=== PATIENT | female | born 1950 | race Caucasian/White ===

== ENCOUNTER 2017-11-14 18:40 | Emergency (ER) | payer MEDICARE, OTHER ==
[2017-11-14] MEDS ORDERED: Sodium Chloride 0.9% 1,000 ML IV ONE (19:00)
[2017-11-14] MEDS ORDERED: Ondansetron 4 MG/2 ML SDV IV ONE ×2 (19:01→19:30)
--- NOTE | 2017-11-14 19:10 | EDM.PDOC ---
ED HPI GENERAL MEDICAL PROBLEM - General Chief Complaint: General Stated Complaint: DIZZY,VOMITING,MENIERE'S [id number] Time Seen by Provider: 11/14/17 19:00 Source of Information: Reports: Patient History Limitations: Reports: No Limitations - History of Present Illness INITIAL COMMENTS - FREE TEXT/NARRATIVE: ED per w/c with family. C/o severe nausea, vomiting and dizziness. Has had intermittent dizziness past week, tonight sudden onset with vomiting, . Hx vertigo, last episode in August with similar sx. Tried meclizine at 430 but emesis 10 minutes alter. Dizziness worse with any movement. Hx migraines, one time monthly. No recent URI. Ears "cleaned yesterday". Primary clinic Presentation [place]. In area visiting. Non smoker. Last head CT years ago. Generalized weakness after vomiting episode, No difficulty with speech. - Related Data Allergies Allergy/AdvReac Type Severity Reaction Status Date / Time cephalexin [From Keflex] Allergy Rash Verified 11/14/17 18:58 Home Meds: Home Meds Omeprazole Magnesium [Prilosec Otc] 20 mg PO DAILY 11/14/17 [History] Rizatriptan Benzoate [Rizatriptan] 10 mg PO ASDIRECTED PRN 11/14/17 [History] Past Medical History HEENT History: Reports: Other (See Below) Other HEENT History: Meniere's Gastrointestinal History: Reports: GERD Neurological History: Reports: Migraines Social & Family History - Tobacco Use Smoking Status *Q: Never Smoker Second Hand Smoke Exposure: No ED ROS GENERAL - Review of Systems Review Of Systems: ROS reveals no pertinent complaints other than HPI. ED EXAM, GENERAL - Physical Exam Exam: See Below Exam Limited By: No Limitations General Appearance: Alert, Mild Distress Eye Exam: Bilateral Eye: EOMI, PERRL Ears: Normal External Exam, Normal TMs Nose: Normal Inspection Throat/Mouth: Normal Oropharynx Head: Atraumatic, Normocephalic Neck: Normal Inspection Respiratory/Chest: Decreased Breath Sounds, Wheezing (left lower), Other (harsh loose cough) Cardiovascular: Regular Rate, Rhythm GI/Abdominal: Normal Bowel Sounds, Soft Back Exam: Full Range of Motion Extremities: Normal Inspection Neurological: Alert, Oriented, Normal Cognition Psychiatric: Normal Affect Skin Exam: Warm, Dry, Intact, Normal Color Course - Vital Signs Last Recorded V/S: Last Vital Signs Temp 97.7 F 11/14/17 21:45 Pulse 80 11/14/17 21:45 Resp 18 11/14/17 21:45 BP 99/60 11/14/17 21:45 Pulse Ox 97 11/14/17 21:45 - Orders/Labs/Meds Orders: Active Orders 24 hr Category Date Time Status RT Aerosol Therapy [RC] ASDIRECTED Care 11/14/17 19:11 Active Labs: Laboratory Tests 11/14/17 11/14/17 11/14/17 Range/Units 19:05 19:05 19:05 WBC 7.3 (5.0-10.0) 10^3/uL RBC 4.28 (4.2-5.4) 10^6/uL Hgb 12.9 (12.0-16.0) g/dL Hct 38.7 (37.0-47.0) % MCV 90.4 (80-100) fL MCH 30.1 (27.0-34.0) pg MCHC 33.3 (33.0-35.0) g/dL Plt Count 225 (150-450) 10^3/uL Neut % (Auto) 64.0 (42.2-75.2) % Lymph % (Auto) 27.7 (20.5-50.1) % Dare % (Auto) 6.7 (2-8) % Eos % (Auto) 1.2 (1.0-3.0) % Baso % (Auto) 0.4 (0.0-1.0) % Sodium 139 (135-145) mmol/L Potassium 3.4 L (3.6-5.0) mmol/L Chloride 105 (101-111) mmol/L Carbon Dioxide 24.0 (21.0-31.0) mmol/L Anion Gap 13.4 BUN 19 H (7-18) mg/dL Creatinine 0.7 (0.6-1.3) mg/dL Est Cr Clr Drug Dosing 62.53 mL/min Estimated GFR (MDRD) > 60 BUN/Creatinine Ratio 27.14 Glucose 116 H (74-105) mg/dL Calcium 8.7 (8.4-10.2) mg/dl Total Bilirubin 0.7 (0.2-1.0) mg/dL AST 30 (10-42) IU/L ALT 26 (10-60) IU/L Alkaline Phosphatase 62 (42-121) IU/L Troponin I < 0.02 (0.00-0.02) ng/ml Total Protein 7.2 (6.7-8.2) g/dl Albumin 4.3 (3.2-5.5) g/dl Globulin 2.9 Albumin/Globulin Ratio 1.48 Meds: Medications Discontinued Medications Generic Name Dose Route Start Last Admin Trade Name Simin PRN Reason Stop Dose Admin Albuterol/Ipratropium 3 ml 11/14/17 19:11 11/14/17 19:21 Duoneb 3.0-0.5 Mg/3 Ml NEB 11/14/17 19:12 Not Given ONETIME ONE Sodium Chloride 1,000 mls @ 250 mls/hr 11/14/17 19:00 11/14/17 19:10 Normal Saline IV 11/14/17 22:59 250 mls/hr .BOLUS ONE Administration Meclizine HCl 25 mg 11/14/17 20:28 11/14/17 20:42 Antivert PO 11/14/17 20:29 25 mg ONETIME ONE Administration Ondansetron HCl 4 mg 11/14/17 19:01 11/14/17 19:10 Zofran IV 11/14/17 19:02 4 mg ONETIME ONE Administration Ondansetron HCl 4 mg 11/14/17 19:30 11/14/17 20:00 Zofran IV 11/14/17 19:31 4 mg ONETIME ONE Administration Ondansetron HCl Confirm 11/14/17 21:33 11/14/17 21:46 Zofran Odt Administered 11/14/17 21:34 Not Given Dose 8 mg .ROUTE .[facility] ONE - Radiology Interpretation Free Text/Narrative:: kirstin: MIRELA KELLER Age: 67Years F Date: 11/14/2017 SSN: -- : 1950 Study: CT HEAD WO Requesting Physician: ANNABELLE RAMIREZ Images: 144 Addl Studies: Provided Clinical History: Contrast: Without Contrast Medium: Contrast Amount: Contrast Method: Page 1 of 2 EXAM: CT Head Without Intravenous Contrast EXAM DATE/TIME: 11/14/2017 7:42 PM CLINICAL HISTORY: 67 years old, female; Signs and symptoms; Dizziness TECHNIQUE: Axial computed tomography images of the head/brain without intravenous contrast. All CT scans at this facility use at least one of these dose optimization techniques: automated exposure control; mA and/or kV adjustment per patient size (includes targeted exams where dose is matched to clinical indication); or iterative reconstruction. Coronal and sagittal reformatted images were created and reviewed. COMPARISON: No relevant prior studies available. FINDINGS: Brain: No hemorrhage, mass effect or midline shift. Ventricles: Normal. No ventriculomegaly. Bones/joints: There are no significant skull abnormalities. Sinuses: The visualized portions of the sinuses and orbits are unremarkable. Mastoid air cells: Normal as visualized. No mastoid effusion. Soft tissues: Normal. IMPRESSION: No hemorrhage, mass effect or midline shift. MIRELA KELLER | Final Radiology Report CONFIDENTIALITY STATEMENT This report is intended only for use by the referring physician, and only in accordance with law. If you received this in error, call [phone]. Page 2 of 2 Thank you for allowing us to participate in the care of your patient. Dictated and Authenticated by: Chad De La Rosa DO 11/14/2017 8:24 PM Central Time ([place] & [place]) - Re-Assessments/Exams Free Text/Narrative Re-Assessment/Exam: 11/14/17 20:38 Eyes open, reports nausea and dizziness improving. Departure - Departure Time of Disposition: 21:40 Disposition: Home, Self-Care 01 Condition: Good Clinical Impression: Dizziness Nausea & vomiting Qualifiers: Vomiting type: bilious vomiting Qualified Code(s): R11.14 - Bilious vomiting - Discharge Information Instructions: Vertigo Referrals: PCP,Not In Area [Primary Care Provider] - Forms: ED Department Discharge Additional Instructions: zofran ODT 4mg every 4 hours as needed for vomiting, nausea meclizine 25mg every 8 hoursa s needed for dizziness rest fluids, small amounts more often follow up if symptoms worsen - My Orders Last 24 Hours: My Active Orders 11/14/17 19:11 RT Aerosol Therapy [RC] ASDIRECTED - Assessment/Plan Last 24 Hours: My Active Orders 11/14/17 19:11 RT Aerosol Therapy [RC] ASDIRECTED
[2017-11-14] MEDS ORDERED: Albuterol/Ipratropium 3.0-0.5 MG/3 ML Neb Soln NEB ONE (19:11)
[2017-11-14 19:32] LABS: ANION GAP 13.4; CHLORIDE,CL 105 mmol/L (101-111); SODIUM,NA 139 mmol/L (135-145)
[2017-11-14] MEDS ORDERED: Meclizine 12.5 MG Tab PO ONE (20:28)
[2017-11-14] MEDS ORDERED: Ondansetron 4 MG Tab.DIS ONE (21:33)
== END 2017-11-14 21:52 | disposition home or self-care (01) ==
LOC: DL.ED 18:40
DX: R11.14 Bilious vomiting (principal); Z79.899 Other long term (current) drug therapy
CPT/HCPCS: 36415; 70450; 80053; 84484; 85025; 96361; 96374; 96376; 99284; A9270; J2405; J7030; 99283